=== PATIENT | female | born 1965 | race Caucasian/White ===

== ENCOUNTER 2017-10-02 11:29 | Observation (INO) ==
[2017-10-02] MEDS ORDERED: Naloxone 0.4 MG/ML INJ IVP PRN (14:18)
[2017-10-02 14:57] LABS: Basophils # 0.1 K/mcL (0.0-0.2); Basophils % 0.8 %; Eosinophils # 0.2 K/mcL (0.0-0.6); Eosinophils % 2.8 %; Hematocrit 43.6 % (35.3-44.9); Hemoglobin 14.9 g/dL (11.5-15.4); Immature Granulocytes % 0.3 % (0-4); Lymphocytes # 2.7 K/mcL (0.6-4.6); Lymphocytes % 43.9 %; Mean Corpuscular HGB Conc 34.2 g/dL (31.6-35.5); Mean Corpuscular Volume 93.6 fL (83.0-100.0); Mean Platelet Volume 9.4 fL (9.4-12.4); Monocytes # 0.5 K/mcL (0.0-1.3); Monocytes % 8.1 %; Neutrophils # 2.7 K/mcL (1.6-8.9); Platelet Count 287 K/mcL (140-400); Red Blood Count 4.66 M/mcL (3.82-4.97); Red Cell Distribution Width 12.5 % (11.5-14.5); Segmented Neutrophils % 44.1 %
[2017-10-02 15:14] LABS: BUN/Creatinine Ratio 14 (6-26); Blood Urea Nitrogen 9 mg/dL (6-20); Calcium 9.6 mg/dL (8.6-10.3); Carbon Dioxide 26 mEq/L (23-29); Chloride 107 mEq/L (98-107); Glucose 97 mg/dL (70-105); Osmolality,Calculated 287 (280-300); Potassium 3.6 mEq/L (3.5-5.1); Sodium 139 mEq/L (136-145); eGFR For Non-African Americans > 60 (> 60)
[2017-10-02 15:16] LABS: Magnesium 1.9 mg/dL (1.6-2.6)
[2017-10-02 15:17] LABS: Troponin I < 0.03 ng/mL (< 0.04)
[2017-10-02] MEDS: Nitroglycerin 0.4 MG TAB.SUBL SL PRN ×2 (15:17→17:02)
[2017-10-02 15:35] LABS: Chol/HDL Ratio 3.7 (0-4.9); Cholesterol 254 mg/dL (< 200); HDL Cholesterol 69 mg/dL (40-59); LDL Cholesterol,Calculated 171 mg/dL (0-99); Triglycerides 68 mg/dL (< 150)
[2017-10-02 15:44] LABS: Estimated Average Glucose 108 mg/dl; Hemoglobin A1C 5.4 %
--- NOTE | 2017-10-02 16:03 | Internal Med History&Physical ---
Date of Encounter: 10/02/17 Time of Encounter: 14:55 Internal Medicine - H&P: HPI Chief complaint: chest pain History of present illness: Ms. Gamble is a 52 year old female with PMHx of HLD presented to the ED with a month history of intermittent chest pain and lightheadedness. She states that she has been experiencing substernal, pressure-like chest discomfort. Non- radiating, no aggravating factors but was relieved with SL nitro she received while at [facility]. No nausea/vomiting or diaphoresis. No family history of premature CAD. Denies fever. She also had intermittent lightheadedness without syncope for that same duration of time. No GI/ symptoms. No joint pain or rash. When she was at the [facility], she was bradycardic in the mid 40s but otherwise stable. Initial troponin was negative and EKG showed sinus ameena. She was sent to [facility] for further cardiac evaluation. Past Med Surg Social Fam HX - Past Medical History Attestation: Yes The following information was validated with the patient. Medical history: hyperlipidemia Additional medical history: Anemia. headaches Psychiatric history: anxiety, depression - Past Surgical History Surgical History: hysterectomy Additional surgical history: Exp Lap w/ gastric wedge resection 05/28/2009. tubal ligation,egd - Social History Smoking Status: Current every day smoker Smokeless Tobacco Status: No Alcohol use: occasionally Drug use: none Internal Medicine - H&P: Meds 3 Allergy/AdvReac Type Severity Reaction Status Date / Time No Known Allergies Allergy Verified 06/19/16 12:31 All Systems PM: A 10-system review of systems was performed and is negative for pertinent findings except as documented above in the HPI. - Constitutional Vitals: Temp Pulse Resp BP Pulse Ox 98.0 F 53 14 121/77 97 10/02/17 14:05 10/02/17 14:05 10/02/17 14:05 10/02/17 14:05 10/02/17 14:55 Exam: General: Alert and oriented, not in distress HEENT:EOM, pupils equal, round, and reactive. Cardiovascular:Normal S1 & S2, no murmurs or gallops. No JVD. Pulse regular, bradycardic. No chest wall tenderness Lungs:Normal breath sounds, no wheezes or crackles. Abdomen:Soft, non-tender, no rigidity. Extremities:No deformity, no edema or tenderness, no joint swelling. Neurological:Normal cognition and motor skills. Skin:Normal color, no rash, no lesions. Pulses:Carotid and radial pulses normal +2. Rest of the physical exam is non-contributory Internal Med - H&P Results - Labs CBC & Chem 7: 10/02/17 14:43 10/02/17 14:43 Labs: Short CBC 10/02/17 Range/Units 14:43 WBC 6.0 (4.3-11.1) K/mcL Hgb 14.9 (11.5-15.4) g/dL Hct 43.6 (35.3-44.9) % Plt Count 287 (140-400) K/mcL Neutrophils # 2.7 (1.6-8.9) K/mcL BMP 10/02/17 14:43 Sodium 139 Potassium 3.6 Chloride 107 Carbon Dioxide 26 BUN 9 Creatinine 0.64 Glucose 97 Calcium 9.6 Cardiac Enzymes 10/02/17 Range/Units 14:43 Troponin I < 0.03 (< 0.04) ng/mL - Assessment and plan (1) Atypical chest pain Current Visit: Yes Status: Acute Assessment and plan: Atypical chest pain in a patient with history of hyperlipidemia and 45-pack- year smoking Troponin negative 2, EKG sinus bradycardia We will check A1c for secondary risk factors. nitro PRN Stress test tomorrow, if abnormal, consult cards (2) Bradycardia Current Visit: Yes Status: Acute Assessment and plan: Maybe contributing to patient's symptom of lightheadedness. not on bb or calcium channel che telemetry ischemic workup as above (3) HLD (hyperlipidemia) Current Visit: Yes Status: Acute Assessment and plan: continue statin Qualifiers: Hyperlipidemia type: mixed hyperlipidemia Qualified Code(s): E78.2 - Mixed hyperlipidemia (4) DVT prophylaxis Current Visit: Yes Status: Chronic Assessment and plan: scd - Time Spent With Patient Total time spent is greater than 50% in coordination of care (as documented) at patient's floor/unit and/or counseling patient:
[2017-10-03 09:14] LABS: Thyroid Stimulating Hormone 1.663 mcIU/mL (0.340-5.600)
--- NOTE | 2017-10-03 17:08 | Electrocardiograph Report ---
[place] [id number] Test Date: 2017-10-02 Pat Name: Dhara Gamble Department: 112 Room: 2A Gender: F Director College: : 1965 Requested By: Asaf Mckeon Order Number: [id number] Reading MD: Jac Jordan Measurements Intervals [place] Rate: 53 P: 65 AL: 155 QRS: -18 QRSD: 86 T: 17 QT: 421 QTc: 404 Interpretive Statements SINUS BRADYCARDIA Electronically Signed On 10-03-2017 17:06:37 EDT by Jac Jordan
--- NOTE | 2017-10-03 17:31 | Internal Med Progress Note ---
Date of Encounter: 10/03/17 Time of Encounter: 10:35 - Assessment and plan (1) Pre-syncope Current Visit: Yes Status: Acute Assessment and plan: Patient has symptoms of lightheadedness and presyncope. We will get 2-D echocardiogram and carotid Dopplers. Orthostatics have been checked and are normal. Moderate risk for complications. (2) Atypical chest pain Current Visit: Yes Status: Acute Assessment and plan: Stress test done today. Was negative for any signs of ischemia per Nuclear imaging. (3) Bradycardia Current Visit: Yes Status: Acute Assessment and plan: Patient did have good heart rate response to stress. Her heart rate has also improved today. Thyroid hormone levels are within normal limits. May need outpatient follow-up with Holter monitoring for further evaluation. (4) DVT prophylaxis Current Visit: Yes Status: Chronic (5) HLD (hyperlipidemia) Current Visit: Yes Status: Chronic Assessment and plan: Continue statin. Qualifiers: Hyperlipidemia type: mixed hyperlipidemia Qualified Code(s): E78.2 - Mixed hyperlipidemia - Time Spent With Patient Total time spent is greater than 50% in coordination of care (as documented) at patient's floor/unit and/or counseling patient: - Subjective Interval history: Patient complaints of lightheadedness since coming back from her stress test. She has had issues with lightheadedness even prior to presentation here. It is associated with standing and moving. She has not had episodes of passing out but she is coming close to passing out before. She was able to run on the treadmill for a stress test today and did not develop any chest pain during that time. - Constitutional Vitals: Temp Pulse Resp BP Pulse Ox 98.0 F 65 19 109/72 98 10/03/17 16:15 10/03/17 16:15 10/03/17 16:15 10/03/17 16:15 10/03/17 16:15 General appearance: Present: cooperative, A&O X 3, answers questions appropriately - Respiratory Respiratory exam: Present: CTAB. Absent: accessory muscle use, rales, rhonchi, wheezes - Cardiovascular Cardiovascular exam: Present: RRR, +S1, +S2. Absent: diastolic murmur, gallop, rubs, systolic murmur - GI/Abdominal GI/Abdominal exam: Present: normal bowel sounds, soft, no peritoneal signs. Absent: distended, tenderness - Extremities Exam Extremities exam: Present: warm, radial pulses palpable and symmetrical. Absent : calf tenderness, cyanotic, pedal edema - Neurological Exam Neurological exam: Present: CN II-XII intact, oriented X3, no focal deficits. Absent: facial droop, speech deficit Internal Medicine: Result - Labs CBC & Chem 7: 10/02/17 14:43 10/02/17 14:43 - VTE Documentation of Mechanical Device: Intermittent pneumatic compression device Consult Discharge Plan - Plan Referrals: Robin Ron MD [Primary Care Provider] - 10/08/17 1:00 pm (Please follow up as schedule...)
[2017-10-04] MEDS: Nitroglycerin 0.4 MG TAB.SUBL SL PRN (06:50)
[2017-10-04 11:41] VITALS: BP 114/77
--- NOTE | 2017-10-04 11:41 | Discharge Summary ---
- NOTES TO OUTPATIENT PROVIDER Notes to Outpatient Provider: Patient was hospitalized here with complaints of a chest pain and bradycardia along with lightheadedness. Her troponins were negative. She underwent cardiac stress test which was negative for any signs of ischemia. She had an echocardiogram which showed EF of 60-65%. Carotid Dopplers did not show any significant stenosis. At this time, and is clinically stable to be discharged home. We will refer her to cardiology and neurology as outpatient for further evaluation and management. Orders not resulted at time of discharge: Pending orders 10/03/17 05:44 NM ephraim perf SPECT multi [NM] Routine Date of Encounter: 10/04/17 Time of Encounter: 11:39 - Discharge Diagnosis (1) Atypical chest pain Priority: Primary Status: Acute (2) Pre-syncope Priority: Secondary Status: Acute (3) Bradycardia Priority: Secondary Status: Acute (4) DVT prophylaxis Priority: Secondary Status: Chronic (5) HLD (hyperlipidemia) Priority: Secondary Status: Chronic Qualifiers: Hyperlipidemia type: mixed hyperlipidemia Qualified Code(s): E78.2 - Mixed hyperlipidemia Hospital course: Ms. Gamble is a 52 year old female Patient with history of hyperlipidemia was hospitalized here with complaints of a chest pain and bradycardia along with lightheadedness. Her troponins were negative. CT of the head is negative. She underwent cardiac stress test which was negative for any signs of ischemia. She had an echocardiogram which showed EF of 60-65%. Carotid Dopplers did not show any significant stenosis. At this time, and is clinically stable to be discharged home. We will refer her to cardiology and neurology as outpatient for further evaluation and management. Discharge discussed with: patient, nurse, case management - Time Spent with Patient Total time spent providing and/or coordinating discharge services: Less than 30 minutes (25 min) - Discharge Medications Home Medications: Turmeric Root Extract [Turmeric] 500 mg PO DAILY 10/03/17 [History] Allergies/Adverse Reactions: 3 Allergy/AdvReac Type Severity Reaction Status Date / Time No Known Allergies Allergy Verified 10/03/17 11:41 Date of admission: 10/02/17 13:53 Primary care physician: Robin Ron MD Consults: 10/02/17 14:47 Consult to Nutrition [CONS] Routine Comment: Consulting Provider: NUTRITION Reason for Dietary Consult: MST Score Discharging clinician: Yadiel Freeman Anticipated date of discharge: 10/04/17 - Constitutional Vitals: Temp Pulse Resp BP Pulse Ox 97.5 F L 56 16 111/74 97 10/04/17 07:40 10/04/17 07:40 10/04/17 07:40 10/04/17 07:40 10/04/17 07:40 General appearance: Present: cooperative, A&O X 3, answers questions appropriately - Respiratory Respiratory exam: Present: CTAB. Absent: accessory muscle use, rales, rhonchi, wheezes - Cardiovascular Cardiovascular exam: Present: RRR, +S1, +S2. Absent: diastolic murmur, gallop, rubs, systolic murmur - GI/Abdominal GI/Abdominal exam: Present: normal bowel sounds, soft, no peritoneal signs. Absent: distended, tenderness - Extremities Exam Extremities exam: Present: warm, radial pulses palpable and symmetrical. Absent : calf tenderness, cyanotic, pedal edema - Patient Status Disposition: Home, Self-Care Condition: Fair Functional capacity at discharge: independent ambulation Overall status at discharge: patient is progressing back to baseline - Discharge Instructions Instructions: Bradycardia (DC) Follow Up With: Robin Ron MD [Primary Care Provider] - 10/08/17 1:00 pm (Please follow up as schedule...) Justino Malcolm DO [Partnered Physician] - 10/07/17 10:15 am (Presyncope Please follow up as schedule..) Carrillo Patel MD [Partnered Physician] - 10/18/17 11:45 am (Presyncope) Forms: Inpatient Work/School Release - Diet and Activity Activity: increase activity as tolerated Diet: low fat, low cholesterol, low salt diet - VTE Documentation of Mechanical Device: Intermittent pneumatic compression device
== END 2017-10-04 14:34 | disposition home or self-care (01) ==
LOC: 2ANU 13:53 → INTOOBSV 13:53 → SUATTDRO 13:53
PROVIDERS: ADMIT Internal Medicine; ATTEND Internal Medicine

== ENCOUNTER 2019-10-15 13:25 | Observation (INO) ==
[2019-10-15 13:46] LABS: Basophils % 0.3 %; Eosinophils # 0.2 K/mcL (0.0-0.6); Eosinophils % 3.2 %; Hematocrit 39.1 % (35.3-44.9); Hemoglobin 13.2 g/dL (11.5-15.4); Immature Granulocytes % 0.1 % (0-4); Lymphocytes # 3.4 K/mcL (0.6-4.6); Lymphocytes % 47.1 %; Mean Corpuscular HGB Conc 33.8 g/dL (31.6-35.5); Mean Corpuscular Hemoglobin 31.3 pg (28.0-33.3); Mean Corpuscular Volume 92.7 fL (83.0-100.0); Mean Platelet Volume 9.2 fL (9.4-12.4); Monocytes # 0.6 K/mcL (0.0-1.3); Monocytes % 7.7 %; Platelet Count 279 K/mcL (140-400); Red Blood Count 4.22 M/mcL (3.82-4.97); Red Cell Distribution Width 12.3 % (11.5-14.5); Segmented Neutrophils % 41.6 %; White Blood Count 7.1 K/mcL (4.3-11.1)
[2019-10-15 14:01] LABS: Prothrombin Time 11.1 Seconds (9.4-12.1)
[2019-10-15 14:23] LABS: Alanine Aminotransferase 14 Units/L (7-52); Albumin 3.9 g/dL (3.5-5.7); Albumin/Globulin Ratio 1.7 (1.1-2.2); Alkaline Phosphatase 72 Units/L (34-104); Aspartate Amino Transferase 21 Units/L (13-39); BUN/Creatinine Ratio 18 (6-26); Bilirubin,Total 0.6 mg/dL (0.3-1.0); Blood Urea Nitrogen 12 mg/dL (6-20); Carbon Dioxide 24 mEq/L (23-29); Chloride 105 mEq/L (98-107); Globulin 2.3 g/dL (2.4-3.5); Glucose 109 mg/dL (70-105); Magnesium 1.9 mg/dL (1.6-2.6); Osmolality,Calculated 288 (280-300); Potassium 3.3 mEq/L (3.5-5.1); Sodium 139 mEq/L (136-145); Total Protein 6.2 g/dL (6.4-8.9); Troponin I < 0.03 ng/mL (< 0.04); eGFR For African Americans > 60 (> 60); eGFR For Non-African Americans > 60 (> 60)
[2019-10-15] MEDS ORDERED: methylPREDNISolone 125 MG/2 ML VIAL IVP ONE (16:56)
[2019-10-15] MEDS ORDERED: Naloxone 0.4 MG/ML INJ IVP PRN (17:00)
[2019-10-15] MEDS ORDERED: Ondansetron 4 MG/2 ML VIAL IVP PRN (17:00)
[2019-10-15] MEDS ORDERED: Perflutren Lipid Microsphere 1.3 ML in 0.9 % Sodium Chloride 8.7 ML IVP PRN (17:30)
[2019-10-16 01:56] LABS: Chol/HDL Ratio 3.2 (0-4.9)
[2019-10-16] MEDS ORDERED: Regadenoson 0.4 MG/5 ML SYRINGE IVP ONE (07:01)
[2019-10-16 08:02] LABS: Estimated Average Glucose 114 mg/dl
[2019-10-16 14:53] VITALS: BP 108/68
== END 2019-10-16 15:11 | disposition home or self-care (01) ==
LOC: 3BNU 13:25 → EMEROOARM 13:25 → SUATTDRO 17:53 → 3BNU 18:46
PROVIDERS: ADMIT Internal Medicine; ATTEND Internal Medicine